=== PATIENT | male | born 1975 | race Caucasian/White ===

== ENCOUNTER 2019-12-06 13:00 | Emergency (ER) | payer BC, OTHER ==
[~2019-12-06] VITALS: Ht 172 cm; Wt 92.0 kg
[2019-12-06] MEDS ORDERED: RT-ALBUTEROL/IPRATROPIUM 3 ML (DUONEB) VIAL INH ONE (13:15)
--- NOTE | 2019-12-06 13:20 | ED General ---
General Chief Complaint: General Problems/Pain Stated Complaint: SOB Source of Information: Patient Exam Limitations: No Limitations History of Present Illness Date Seen by Provider: Dec 06, 2019 Time Seen by Provider: 13:15 Initial Comments Patient presents with complaint of shortness of air onset when going up some steps at work today. Denied any chest pain or shortness of air rest. Denies any recent illness, fever or chills. Denies abdominal pain, nausea or vomiting. Denies any history of heart or lung disease. Allergies and Home Medications Allergies Coded Allergies: cephalexin (Verified Allergy, Unknown, 12/06/19) Home Medications Albuterol Sulfate 1 Puff Puff, 2 PUFF INH Q4H PRN for SHORTNESS OF BREATH 1 PUFF = 90 MCG Prescribed by: JENA DAVIS on 12/06/19 9870 Patient Home Medication List Home Medication List Reviewed: Yes Review of Systems Review of Systems Constitutional: see HPI; No fever, No malaise, No weakness EENTM: no symptoms reported Respiratory: see HPI, dyspnea on exertion; No hemoptysis, No orthopnea, No phlegm; short of breath; No stridor, No wheezing Cardiovascular: see HPI; No chest pain, No edema, No Hx of Intervention, No palpitations, No syncope Gastrointestinal: No abdominal pain, No loss of appetite, No nausea, No vomiting Musculoskeletal: no symptoms reported, see HPI; No joint pain, No muscle pain, No muscle stiffness, No muscle cramps, No muscle weakness, No neck pain Skin: No change in color, No lesions, No rash Past Ojqeflh-Yezbrr-Bbolym Hx Past Med/Social Hx: Reviewed Nursing Past Med/Soc Hx Patient Social History Alcohol Use: Denies Use Recreational Drug Use: No 2nd Hand Smoke Exposure: No Recent Foreign Travel: No Recent Hopitalizations: No Physical Abuse: No Sexual Abuse: No Mistreated: No Fear: No Seasonal Allergies Seasonal Allergies: No Past Medical History Surgeries: No Respiratory: No Cardiac: No Neurological: Yes Neuropathy Genitourinary: No Gastrointestinal: No Musculoskeletal: No Endocrine: Yes Diabetes, Non-Insulin dep HEENT: No Cancer: No Psychosocial: No Integumentary: No Physical Exam Vital Signs Vital Signs - First Documented 12/06/19 13:15 Temp 36.4 Pulse 75 Resp 16 B/P (MAP) 148/92 (110) Pulse Ox 97 O2 Delivery Room Air Capillary Refill : Height, Weight, BMI Height: '" Weight: lbs. oz. kg; BMI Method: General Appearance: No Apparent Distress, WD/WN HEENT: PERRL/EOMI, TMs Normal, Normal ENT Inspection, Pharynx Normal Neck: Full Range of Motion, Normal Inspection, Non Tender, Supple Respiratory: Chest Non Tender, Lungs Clear, Normal Breath Sounds, No Accessory Muscle Use, No Respiratory Distress Cardiovascular: Regular Rate, Rhythm, No Edema, No Gallop, No JVD, No Murmur, Normal Peripheral Pulses Gastrointestinal: Normal Bowel Sounds, Non Tender, Soft Back: Normal Inspection, No CVA Tenderness Extremity: Normal Capillary Refill, Normal Inspection, Non Tender, No Calf Tenderness Neurologic/Psychiatric: Alert, Oriented x3, No Motor/Sensory Deficits Skin: Normal Color, Warm/Dry Progress/Results/Core Measures Suspected Sepsis SIRS Temperature: Pulse: Respiratory Rate: Laboratory Tests 12/06/19 13:30: White Blood Count 5.9 Blood Pressure / Mean: Laboratory Tests 12/06/19 13:30: Creatinine 0.88, Platelet Count 284, Total Bilirubin 0.2 Results/Orders Lab Results Laboratory Tests Test 12/06/19 13:12 12/06/19 13:30 Range/Units Glucometer 140 H 70-110 MG/DL White Blood Count 5.9 4.3-11.0 10^3/uL Red Blood Count 4.86 4.35-5.85 10^6/uL Hemoglobin 14.7 13.3-17.7 G/DL Hematocrit 43 40-54 % Mean Corpuscular Volume 88 80-99 FL Mean Corpuscular Hemoglobin 30 25-34 PG Mean Corpuscular Hemoglobin Concent 34 32-36 G/DL Red Cell Distribution Width 12.6 10.0-14.5 % Platelet Count 284 130-400 10^3/uL Mean Platelet Volume 10.3 7.4-10.4 FL Neutrophils (%) (Auto) 53 42-75 % Lymphocytes (%) (Auto) 36 12-44 % Monocytes (%) (Auto) 8 0-12 % Eosinophils (%) (Auto) 2 0-10 % Basophils (%) (Auto) 1 0-10 % Neutrophils # (Auto) 3.1 1.8-7.8 X 10^3 Lymphocytes # (Auto) 2.2 1.0-4.0 X 10^3 Monocytes # (Auto) 0.5 0.0-1.0 X 10^3 Eosinophils # (Auto) 0.1 0.0-0.3 10^3/uL Basophils # (Auto) 0.0 0.0-0.1 10^3/uL Sodium Level 139 135-145 MMOL/L Potassium Level 4.0 3.6-5.0 MMOL/L Chloride Level 103 98-107 MMOL/L Carbon Dioxide Level 21 21-32 MMOL/L Anion Gap 15 H 5-14 MMOL/L Blood Urea Nitrogen 17 7-18 MG/DL Creatinine 0.88 0.60-1.30 MG/DL Estimat Glomerular Filtration Rate > 60 BUN/Creatinine Ratio 19 Glucose Level 138 H 70-105 MG/DL Calcium Level 9.2 8.5-10.1 MG/DL Corrected Calcium 8.9 8.5-10.1 MG/DL Total Bilirubin 0.2 0.1-1.0 MG/DL Aspartate Amino Transf (AST/SGOT) 29 5-34 U/L Alanine Aminotransferase (ALT/SGPT) 33 0-55 U/L Alkaline Phosphatase 70 40-136 U/L Troponin I < 0.30 <0.30 NG/ML Total Protein 7.5 6.4-8.2 GM/DL Albumin 4.4 3.2-4.5 GM/DL My Orders Orders - ROVENSTINE,JENA L DO Chest 1 View Ap/Pa Only (12/06/19 13:15) Ekg Tracing (12/06/19 13:15) Albuterol/Ipra Inhalation Soln (Duoneb I (12/06/19 13:15) Svn Small Volume Nebulizer (12/06/19 13:15) Cbc With Automated Diff (12/06/19 13:53) Comprehensive Metabolic Panel (12/06/19 13:53) Troponin I Fs (12/06/19 13:53) Medications Given in ED Current Medications Medications Dose Ordered Sig/Milton Route Start Time Stop Time Status Last Admin Dose Admin Albuterol/ Ipratropium 3 ml ONCE ONCE INH 12/06/19 13:15 12/06/19 13:16 DC 12/06/19 13:29 3 ML Vital Signs/I&O 12/06/19 13:15 Temp 36.4 Pulse 75 Resp 16 B/P (MAP) 148/92 (110) Pulse Ox 97 O2 Delivery Room Air Capillary Refill : ECG Initial ECG Impression Date: Dec 06, 2019 Initial ECG Impression Time: 13:30 Initial ECG Rate: 74 Initial ECG Rhythm: Normal Sinus Initial ECG Intervals: Normal Initial ECG Impression: Normal Initial ECG Comparisson: No Previous ECG Available Comment NO ST changes, normal axis Departure Impression Primary Impression: Dyspnea on exertion Disposition: 01 HOME, SELF-CARE Condition: Stable Departure-Patient Inst. Decision time for Depature: 14:23 Referrals: ESTEFANY NEVES MD (PCP/Family) Primary Care Physician Patient Instructions: Shortness of Breath (Dyspnea) Scripts Albuterol Sulfate (PROAIR HFA) 1 Puff Puff 2 PUFF INH Q4H PRN for SHORTNESS OF BREATH, #1 PUFF 1 PUFF = 90 MCG Prov: JENA DAVIS DO 12/06/19 JENA DAVIS DO Dec 06, 2019 13:20
--- NOTE | 2019-12-06 13:54 | Diagnostic Imaging Report ---
Indication: Shortness of breath. Time of exam: 1:41 PM No prior studies are available for comparison. The heart size is normal. The pulmonary vascularity is unremarkable. The lungs are clear. No infiltrate, effusion or pneumothorax is detected. Impression: No acute cardiopulmonary process is detected. Dictated by: Dictated on workstation # [id number]
[2019-12-06 14:02] LABS: HEMATOCRIT 43 % (40-54); HEMOGLOBIN 14.7 G/DL (13.3-17.7); LYMPHOCYTES % (AUTO) 36 % (12-44); MEAN CORPUSCULAR HEMOGLOBIN 30 PG (25-34); MEAN CORPUSCULAR HGB CONC 34 G/DL (32-36); MEAN CORPUSCULAR VOLUME 88 FL (80-99); MEAN PLATELET VOLUME 10.3 FL (7.4-10.4); NEUTROPHILS % (AUTO) 53 % (42-75); PLATELET COUNT 284 10^3/uL (130-400); RED CELL DISTRIBUTION WIDTH 12.6 % (10.0-14.5); WHITE BLOOD COUNT 5.9 10^3/uL (4.3-11.0)
[2019-12-06 14:03] LABS: BASOPHILS % (AUTO) 1 % (0-10); EOSINOPHILS # (AUTO) 0.1 10^3/uL (0.0-0.3); EOSINOPHILS % (AUTO) 2 % (0-10); LYMPHOCYTES # (AUTO) 2.2 X 10^3 (1.0-4.0); MONOCYTES # (AUTO) 0.5 X 10^3 (0.0-1.0); MONOCYTES % (AUTO) 8 % (0-12); NEUTROPHILS # (AUTO) 3.1 X 10^3 (1.8-7.8)
[2019-12-06 14:17] LABS: ALANINE AMINOTRANSFERASE 33 U/L (0-55); ALKALINE PHOSPHATASE 70 U/L (40-136); BILIRUBIN,TOTAL 0.2 MG/DL (0.1-1.0); BUN/CREATININE RATIO 19; CALCIUM 9.2 MG/DL (8.5-10.1); CARBON DIOXIDE 21 MMOL/L (21-32); CHLORIDE 103 MMOL/L (98-107); CREATININE SERUM 0.88 MG/DL (0.60-1.30); GFR ESTIMATED > 60; GLUCOSE 138 MG/DL (70-105); SODIUM 139 MMOL/L (135-145)
[2019-12-06 14:18] LABS: ALBUMIN 4.4 GM/DL (3.2-4.5); TOTAL PROTEIN 7.5 GM/DL (6.4-8.2)
[2019-12-06] MEDS ORDERED: RT-ALBUINH INH (14:24)
[2019-12-06 14:28] VITALS: BP 132/78
== END 2019-12-06 14:29 | disposition home or self-care (01) ==
LOC: ER FS 13:02
DX: R06.09 Other forms of dyspnea (principal); E11.40 Type 2 diabetes mellitus with diabetic neuropathy, unspecified; Z88.1 Allergy status to other antibiotic agents
CPT/HCPCS: 36415; 71045; 80053; 82962; 84484; 85025; 93005

== ENCOUNTER 2020-06-22 14:44 | Emergency (ER) | payer BC ==
[~2020-06-22] VITALS: Ht 172.7 cm; Wt 97.2 kg
[~2020-06-22 14:44] MED LIST: RT-ALBUINH INH
[2020-06-22] MEDS ORDERED: ASPIRIN 81 MG CHEW (CHILDREN'S ASA) PO ONE (15:00)
[2020-06-22 15:18] LABS: HEMATOCRIT 42 % (40-54); HEMOGLOBIN 14.5 G/DL (13.3-17.7); MEAN CORPUSCULAR HEMOGLOBIN 31 PG (25-34); MEAN CORPUSCULAR HGB CONC 35 G/DL (32-36); MEAN CORPUSCULAR VOLUME 88 FL (80-99); PLATELET COUNT 314 10^3/uL (130-400); RED CELL DISTRIBUTION WIDTH 12.5 % (10.0-14.5); WHITE BLOOD COUNT 8.2 10^3/uL (4.3-11.0)
[2020-06-22 15:19] LABS: BASOPHILS # (AUTO) 0.1 10^3/uL (0.0-0.1); BASOPHILS % (AUTO) 1 % (0-10); EOSINOPHILS # (AUTO) 0.2 10^3/uL (0.0-0.3); EOSINOPHILS % (AUTO) 2 % (0-10); LYMPHOCYTES # (AUTO) 2.8 X 10^3 (1.0-4.0); LYMPHOCYTES % (AUTO) 35 % (12-44); MONOCYTES # (AUTO) 0.8 X 10^3 (0.0-1.0); MONOCYTES % (AUTO) 9 % (0-12); NEUTROPHILS # (AUTO) 4.3 X 10^3 (1.8-7.8); NEUTROPHILS % (AUTO) 53 % (42-75)
--- NOTE | 2020-06-22 15:26 | ED Chest Pain ---
General Chief Complaint: Chest Pain Stated Complaint: CHEST/JAW PAIN Source: patient Exam Limitations: no limitations History of Present Illness Date Seen by Provider: Jun 22, 2020 Time Seen by Provider: 14:48 Initial Comments The patient is a pleasant 44-year-old male presents for evaluation of left-sided jaw pain. He states that on he experienced some chest discomfort which has since resolved. He denies any chest pain since then and has not had any t pratibha. He denies any history of cardiac problems. He also denies diaphoresis, nausea or vomiting, palpitations, dizziness or syncope, fevers or chills, cough or shortness of breath. He is alert and oriented 4, calm, and appears to be in no distress this time. The jaw pain he is experiencing is actually at the left TMJ joint. He states that chewing and opening his mouth makes the pain worse. Timing/Duration: 2-3 days Severity/Quality: mild Location: substernal, other (left jaw) Radiation: jaw Prior CP/Workup: no prior chest pain Modifying Factors: worse with breathing, worse with coughing, worse with exercise, worse with lying down, worse with movement ASA po GLASS SETTER: No NTG SL GLASS SETTER: No Associated Symptoms: No denies symptoms Allergies and Home Medications Allergies Coded Allergies: cephalexin (Verified Allergy, Unknown, 12/06/19) Home Medications Albuterol Sulfate 1 Puff Puff, 2 PUFF INH Q4H PRN for SHORTNESS OF BREATH 1 PUFF = 90 MCG Prescribed by: JENA DAVIS on 12/06/19 1424 Patient Home Medication List Home Medication List Reviewed: Yes Review of Systems Review of Systems Constitutional: no symptoms reported EENTM: Other (left jaw pain) Respiratory: No Symptoms Reported Cardiovascular: Chest Pain Gastrointestinal: No Symptoms Reported Genitourinary: No Symptoms Reported Musculoskeletal: no symptoms reported Skin: no symptoms reported Psychiatric/Neurological: No Symptoms Reported Endocrine: No Symptoms Reported Hematologic/Lymphatic: No Symptoms Reported All Other Systems Reviewed Negative Unless Noted: Yes Past Juxskel-Lotlno-Vqmenl Hx Past Med/Social Hx: Reviewed Nursing Past Med/Soc Hx Patient Social History 2nd Hand Smoke Exposure: No Recent Hopitalizations: No Seasonal Allergies Seasonal Allergies: No Past Medical History Surgeries: No Respiratory: No Cardiac: No Neurological: Yes Neuropathy Genitourinary: No Gastrointestinal: No Musculoskeletal: No Endocrine: Yes Diabetes, Non-Insulin dep HEENT: No Cancer: No Psychosocial: No Integumentary: No Physical Exam Vital Signs Vital Signs - First Documented 06/22/20 14:45 Temp 37.0 Pulse 75 Resp 21 B/P (MAP) 155/100 (118) Pulse Ox 97 O2 Delivery Room Air Capillary Refill : Height, Weight, BMI Height: '" Weight: lbs. oz. kg; 31.00 BMI Method: General Appearance: No Apparent Distress, WD/WN HEENT: PERRL/EOMI, Pharynx Normal Neck: Full Range of Motion, Normal Inspection, Non Tender Respiratory: Lungs Clear, Normal Breath Sounds, No Accessory Muscle Use Cardiovascular: Regular Rate, Rhythm, No Edema, No Murmur, Normal Peripheral Pulses Gastrointestinal: Normal Bowel Sounds, No Pulsatile Mass, Non Tender, Soft Extremity: Normal Capillary Refill, Normal Range of Motion, Non Tender Neurologic/Psychiatric: Alert, Oriented x3, No Motor/Sensory Deficits, Normal Mood/Affect Skin: Normal Color, Warm/Dry Progress/Results/Core Measures Results/Orders Lab Results Laboratory Tests Test 06/22/20 14:51 Range/Units White Blood Count 8.2 4.3-11.0 10^3/uL Red Blood Count 4.74 4.35-5.85 10^6/uL Hemoglobin 14.5 13.3-17.7 G/DL Hematocrit 42 40-54 % Mean Corpuscular Volume 88 80-99 FL Mean Corpuscular Hemoglobin 31 25-34 PG Mean Corpuscular Hemoglobin Concent 35 32-36 G/DL Red Cell Distribution Width 12.5 10.0-14.5 % Platelet Count 314 130-400 10^3/uL Mean Platelet Volume 10.0 7.4-10.4 FL Neutrophils (%) (Auto) 53 42-75 % Lymphocytes (%) (Auto) 35 12-44 % Monocytes (%) (Auto) 9 0-12 % Eosinophils (%) (Auto) 2 0-10 % Basophils (%) (Auto) 1 0-10 % Neutrophils # (Auto) 4.3 1.8-7.8 X 10^3 Lymphocytes # (Auto) 2.8 1.0-4.0 X 10^3 Monocytes # (Auto) 0.8 0.0-1.0 X 10^3 Eosinophils # (Auto) 0.2 0.0-0.3 10^3/uL Basophils # (Auto) 0.1 0.0-0.1 10^3/uL Sodium Level 138 135-145 MMOL/L Potassium Level 4.1 3.6-5.0 MMOL/L Chloride Level 103 98-107 MMOL/L Carbon Dioxide Level 23 21-32 MMOL/L Anion Gap 12 5-14 MMOL/L Blood Urea Nitrogen 16 7-18 MG/DL Creatinine 0.85 0.60-1.30 MG/DL Estimat Glomerular Filtration Rate > 60 BUN/Creatinine Ratio 19 Glucose Level 125 H 70-105 MG/DL Calcium Level 9.7 8.5-10.1 MG/DL Corrected Calcium 9.3 8.5-10.1 MG/DL Magnesium Level 2.1 1.6-2.4 MG/DL Total Bilirubin 0.3 0.1-1.0 MG/DL Aspartate Amino Transf (AST/SGOT) 34 5-34 U/L Alanine Aminotransferase (ALT/SGPT) 60 H 0-55 U/L Alkaline Phosphatase 76 40-136 U/L Troponin I < 0.30 <0.30 NG/ML Pro-B-Type Natriuretic Peptide 7.6 <75.0 PG/ML Total Protein 7.4 6.4-8.2 GM/DL Albumin 4.5 3.2-4.5 GM/DL Lipase 53 8-78 U/L My Orders Orders - LAURA KING DO Cbc With Automated Diff (06/22/20 14:55) Magnesium (06/22/20 14:55) Chest 1 View Ap/Pa Only (06/22/20 14:55) Ekg Tracing (06/22/20 14:55) Comprehensive Metabolic Panel (06/22/20 14:55) O2 (06/22/20 14:55) Monitor-Rhythm Ecg Trace Only (06/22/20 14:55) Aspirin Chewable Tablet (Baby Aspirin Ch (06/22/20 15:00) Ed Iv/Invasive Line Start (06/22/20 14:55) Lipase (06/22/20 14:55) Troponin I Fs (06/22/20 14:55) Probnp Fs (06/22/20 14:55) Lidocaine 2% Viscous 15 Ml (Xylocaine Vi (06/22/20 16:15) Antacid Suspension (Mylanta Suspension (06/22/20 16:15) Medications Given in ED Current Medications Medications Dose Ordered Sig/Milton Route Start Time Stop Time Status Last Admin Dose Admin Al Hydrox/Mg Hydrox/Simethicone 30 ml ONCE ONCE PO 06/22/20 16:15 06/22/20 16:16 DC 06/22/20 16:16 30 ML Aspirin 324 mg ONCE ONCE PO 06/22/20 15:00 06/22/20 15:01 DC 06/22/20 15:16 324 MG Lidocaine HCl 15 ml ONCE ONCE PO 06/22/20 16:15 06/22/20 16:16 DC 06/22/20 16:17 15 ML Vital Signs/I&O 06/22/20 06/22/20 14:45 14:45 Temp 37.0 Pulse 75 Resp 21 B/P (MAP) 155/100 (118) Pulse Ox 97 O2 Delivery Room Air Room Air Progress Progress Note : Progress Note @1635 - patient updated on lab and imaging results which are acutely unremarkable. He states he is having a small amount of heartburn so GI cocktail has been given but he denies any chest pain. He says that at rest his jaw pain is mild but when he talks or opens his mouth or chews it gets worse. Advised the patient that it does not appear that his symptoms are coming from his heart but advised an outpatient stress test with his PCP. Advise that he follow-up with his PCP in the next 1-2 days and return to the emergency Department immediately for new or worsening symptoms. The patient expresses verbal understanding and agreement with the plan. Comment EKG@ 1448 - normal sinus rhythm, rate of 69, normal axis, no acute ischemic findings noted, no STEMI, reviewed and interpreted by myself Departure Impression Primary Impression: Sprain of jaw, left side, initial encounter Additional Impression: Chest pain Disposition: HOME, SELF-CARE Condition: Stable Departure-Patient Inst. Decision time for Depature: 16:34 Referrals: SELF,ESTEFANY RIDER (PCP/Family) Primary Care Physician Patient Instructions: Chest Pain That Is Not Caused by the Heart (DC), Temporomandibular Joint (TMJ) Disorders (DC) Add. Discharge Instructions: Follow-up with your doctor in the next 1-2 days. As we discussed, I recommend that you obtain an outpatient stress test in the next few days. Return to the emergency Department immediately for new or worsening symptoms. Take the prescribed medicine as directed, as needed for your left eye pain. LAURA KING DO Jun 22, 2020 15:26
[2020-06-22 15:40] LABS: BUN/CREATININE RATIO 19; CARBON DIOXIDE 23 MMOL/L (21-32); CHLORIDE 103 MMOL/L (98-107); CREATININE SERUM 0.85 MG/DL (0.60-1.30); GFR ESTIMATED > 60; GLUCOSE 125 MG/DL (70-105); POTASSIUM 4.1 MMOL/L (3.6-5.0); SODIUM 138 MMOL/L (135-145)
[2020-06-22 15:41] LABS: ALANINE AMINOTRANSFERASE 60 U/L (0-55); ALBUMIN 4.5 GM/DL (3.2-4.5); ALKALINE PHOSPHATASE 76 U/L (40-136); BILIRUBIN,TOTAL 0.3 MG/DL (0.1-1.0); CALCIUM 9.7 MG/DL (8.5-10.1); LIPASE 53 U/L (8-78); MAGNESIUM 2.1 MG/DL (1.6-2.4); TOTAL PROTEIN 7.4 GM/DL (6.4-8.2)
[2020-06-22] MEDS ORDERED: LIDOCAINE 2% VISCOUS 15 ML UDC PO ONE (16:15)
[2020-06-22] MEDS ORDERED: ANTACID SUSP 30 ML UDC (MYLANTA) PO ONE (16:15)
[2020-06-22 16:50] VITALS: BP 141/88
--- NOTE | 2020-06-22 16:52 | Diagnostic Imaging Report ---
INDICATION: Chest pain. COMPARISON: 12/06/2019. FINDINGS: Single frontal view of the chest demonstrates normal heart size and pulmonary vascularity. The lungs are well aerated and clear. No large pleural effusion or pneumothorax is seen. The visualized osseous structures show no acute abnormalities. IMPRESSION: 1. No acute cardiopulmonary process. Dictated by: Dictated on workstation # [id number]
--- OUTSIDE RECORDS SUMMARY | 2020-06-22 19:19 | XMS REPORT ---
Author Author Chandan ROSAS Organization [facility] Address [address] [place] [address] Care Team Providers Care Solar Sales Representative And Assessor Name Role Phone COREY ROSAS Unavailable PROBLEMS Type Condition ICD9-CM Code [id number] Code Onset Dates Condition S tatus SNOMED Code Problem Environmental allergies Z91.09 23 Nov, 2008 Act caitlin [id number] Problem ADHD (attention deficit hyperactivity disorder) F9 0.9 Active 560488224 Problem Major depressive disorder, recurrent, moderate F33 .1 Active 336345136 Problem GERD (gastroesophageal reflux disease) K21.9 2 3 Nov, 2008 Active 216977171 Problem Chronic neck pain M54.2 Jun, Active [id number] Problem CTS (carpal tunnel syndrome) G56.00 08 Nov, 201 4 Active 54032260 Problem IBS (irritable bowel syndrome) K58.9 Active [id number] ALLERGIES No Information ENCOUNTERS Encounter Location Date Diagnosis [address] [place] [address] Nov, [address] [place] [address] Nov, [address] [place] [address] Nov, [address] [place] [address] Oct, Depression F32.9 [address] [place] [address] Oct, ADHD (attention deficit hype ractivity disorder) F90.9 [address] [place] [address] Oct, Encounter for immunization Z [address] [place] [address] Sep, ADHD (attention deficit hype ractivity disorder) F90.9 [address] [place] [address] Sep, [address] [place] [address] Sep, Sinusitis acute J01.90 [address] [place] [address] Sep, Major depressive disorder, r ecurrent, moderate F33.1 ; Traumatic brain injury, without loss of consciousness, sequela S06.9X0S ; Other chcf (current) drug therapy Z79.899 and ADHD (attention deficit hyperactivity disorder) F90.[address] [place] [address] Aug, ADHD (attention deficit hype ractivity disorder) F90.9 [address] [place] [address] Aug, [address] [place] [address] Aug, [address] [place] [address] Aug, ADHD (attention deficit hype ractivity disorder) F90.9 and Viral illness B34.[address] [place] [address] Jul, ADHD (attention deficit hype ractivity disorder) F90.9 [facility] [address] [id number] [place] [address] Jul, [facility] [address] [id number] [place] [address] Jul, [address] [place] [address] Jun, ADHD (attention deficit hype ractivity disorder) F90.9 [facility] [address] [place] [address] Jun, ADHD (attention deficit hype ractivity disorder) F90.9 [facility] [address] [place] [address] Apr, Depression F32.9 ; Medicatio n monitoring encounter Z51.81 and ADHD (attention deficit hyperactivity disorder) F90.9 [facility] [address] [place] [address] Apr, [facility] [address] [place] [address] March, [facility] [address] [place] [address] March, ADHD (attention deficit hype ractivity disorder) F90.9 ; GERD (gastroesophageal reflux disease) K21.9 and Depression F32.9 [facility] [address] [place] [address] March, [facility] [address] [place] [address] Feb, Attention deficit hyperactiv ity disorder (ADHD) F90.9 and Acute non-recurrent maxillary sinusitis J01.00 [facility] [address] [place] [address] Feb, [facility] [address] [place] [address] Jan, [facility] [address] [place] [address] Jan, [facility] [address] [place] [address] Jan, [facility] [address] [place] [address] Jan, [facility] [address] [place] [address] Jan, [facility] [address] [facility] [place] [address] Jan, Numbness in both hands R20.0 [facility] [address] [facility] [place] [address] Jan, [facility] [address] [id number] [place] [address] Oct, [facility] [id number] [place] [address] Oct, [facility] [address] [id number] [place] [address] Aug, [facility] [address] [id number] [place] [address] Jul, IMMUNIZATIONS No Known Immunizations SOCIAL HISTORY Never Assessed REASON FOR VISIT Short Term Disability PLAN OF CARE VITAL SIGNS MEDICATIONS Unknown Medications RESULTS No Results PROCEDURES No Known procedures INSTRUCTIONS MEDICATIONS ADMINISTERED No Known Medications MEDICAL (GENERAL) HISTORY Type Description Date Medical History GERD (gastroesophageal reflux disease) Medical History IBS (irritable bowel syndrome) Medical History ADHD (attention deficit hyperactivity di sorder) Medical History Depression Medical History Environmental allergies Medical History CTS (carpal tunnel syndrome) Medical History Chronic neck pain Surgical History ankle surgery right Hospitalization History head injury
--- OUTSIDE RECORDS SUMMARY | 2020-06-22 19:19 | XMS REPORT ---
Author Author Chandan ROSAS Organization [facility] Address [address] [place] [address] Care Team Providers Care Agency Manager Name Role Phone COREY ROSAS Unavailable PROBLEMS Type Condition ICD9-CM Code [id number] Code Onset Dates Condition S tatus SNOMED Code Problem Environmental allergies Z91.09 Nov, Act caitlin [id number] Problem GERD (gastroesophageal reflux disease) K21.9 2 3 Nov, 2008 Active 923635432 Problem Major depressive disorder, recurrent, moderate F33 .1 Active 940149740 Problem Unspecified mood [affective] disorder F39 Active 98748490 Problem Chronic neck pain M54.2 Jun, Active 7911354212746 Problem CTS (carpal tunnel syndrome) G56.00 Nov, 4 Active 74579170 Problem IBS (irritable bowel syndrome) K58.9 Active 28938790 Problem ADHD (attention deficit hyperactivity disorder) F9 0.9 Active 787946644 ALLERGIES No Information ENCOUNTERS Encounter Location Date Diagnosis [address] 340 [place], [place] [address] Jun, [address] [place], [place] [address] Apr, 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 Z79.[address] 340B [id number], [place] [address] 24 Apr, 2020 ADHD (attention deficit hype ractivity disorder) F90.9 ; Other chcf (current) drug therapy Z79.899 ; Unspecified mood [affective] disorder F39 and Traumatic brain injury, without loss of consciousness, sequela S06.9X0S [address] 340B [id number], [place] [address] Apr, Paronychia L03.019 [facility] ARTURO SMITH [address] 340B [id number] [place] [address] Apr, ADHD (attention deficit hype ractivity disorder) F90.9 [facility] ARTURO [address] 340B [id number] [place] [address] March, ADHD (attention deficit hype ractivity disorder) F90.9 [facility] ARTURO [address] 340B [id number], [place] [address] March, Major depressive disorder, r ecurrent, moderate F33.1 ; Traumatic brain injury, without loss of consciousness, sequela S06.9X0S ; 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.899 and ADHD (attention deficit hyperactivity disorder) F90.9 [facility] [address] [facility] [id number] [address] [place] [address] Feb, Major depressive disorder, r ecurrent, moderate F33.1 [facility] ARTURO [address] 340B [id number], [place] [address] Feb, ADHD (attention deficit hype ractivity disorder) F90.9 [facility] ARTURO [address] 340B [id number], [place] [address] Feb, [address] 340[address] [id number], [place] [address] Feb, [address] 340[address] [id number], [place] [address] Jan, ADHD (attention deficit hype ractivity disorder) F90.9 and IBS (irritable bowel syndrome) K58.9 [facility] [address] [facility] [id number] [address] [place] [address] Jan, ADHD (attention deficit hype ractivity disorder) F90.9 [facility] ARTURO [address] 340B [id number] [place] [address] Dec, [address] 340[address] [id number], [place] [address] Dec, Major depressive disorder, r ecurrent, moderate F33.1 ; Traumatic brain injury, without loss of consciousness, sequela S06.9X0S ; Other chcf (current) drug therapy Z79.899 and ADHD (attention deficit hyperactivity disorder) F90.[address] 340B [id number] [place] [address] Nov, Major depressive disorder, r ecurrent, moderate F33.1 ; Traumatic brain injury, without loss of consciousness, sequela S06.9X0S ; Other chcf (current) drug therapy Z79.899 and ADHD (attention deficit hyperactivity disorder) F90.[address] 340B [id number] [place] [address] Nov, [address] 340B [id number] [place] [address] Nov, [address] 340[address] [id number], [place] [address] Oct, Depression F32.[address] 340B [id number] [place] [address] Oct, ADHD (attention deficit hype ractivity disorder) F90.[address] 340B [id number] [place] [address] Oct, Encounter for immunization Z [address] 340B [id number] [place] [address] Sep, ADHD (attention deficit hype ractivity disorder) F90.[address] 340B [id number] [place] [address] Sep, [address] 340B [id number] [place] [address] 14 Sep, 2019 Sinusitis acute J01.[address] 340B [id number] [place] [address] Sep, Major depressive disorder, r ecurrent, moderate F33.1 ; Traumatic brain injury, without loss of consciousness, sequela S06.9X0S ; Other chcf (current) drug therapy Z79.899 and ADHD (attention deficit hyperactivity disorder) F90.9 [facility] ARTURO [address] 340B [id number] [place] [address] Aug, ADHD (attention deficit hype ractivity disorder) F90.9 [facility] ARTURO [address] 340B [id number] [place] [address] Aug, [address] 340B [id number] [place] [address] Aug, [address] 340[address] [id number], [place] [address] Aug, ADHD (attention deficit hype ractivity disorder) F90.9 and Viral illness B34.9 [facility] ARTURO [address] 340B [id number] [place] [address] Jul, ADHD (attention deficit hype ractivity disorder) F90.9 [facility] [address] [facility] [id number] [address] [place] [address] Jul, [facility] [address] [facility] [id number] [address] [place] [address] Jul, [address] 340B [id number] [place] [address] Jun, ADHD (attention deficit hype ractivity disorder) F90.[address] 340B [id number] [place] [address] Jun, ADHD (attention deficit hype ractivity disorder) F90.[address] 340B [id number] [place] [address] Apr, Depression F32.9 ; Medicatio n monitoring encounter Z51.81 and ADHD (attention deficit hyperactivity disorder) F90.[address] 340B [id number] [place] [address] Apr, [facility] [address] 340B [id number] [place] [address] March, [facility] [address]B [id number] [place] [address] March, ADHD (attention deficit hype ractivity disorder) F90.9 ; GERD (gastroesophageal reflux disease) K21.9 and Depression F32.9 [facility] [address] 340B [id number] [place] [address] March, [facility] [address] 340[address] [id number], [place] [address] Feb, Attention deficit hyperactiv ity disorder (ADHD) F90.9 and Acute non-recurrent maxillary sinusitis J01.00 [facility] [address] 340B [id number] [place] [address] Feb, [facility] [address] 340[address] [id number], [place] [address] Jan, [facility] [address] 340[address] [id number], [place] [address] Jan, [facility] [address] 340[address] [id number], [place] [address] Jan, [facility] [address] 340[address] [id number], [place] [address] Jan, [facility] [address] 340[address] [id number], [place] [address] Jan, [facility] [address] 340B [id number], [place] [address] Jan, Numbness in both hands R20.0 [facility] [address]B [id number] [place] [address] Jan, [facility] [address] [facility] [id number] [place] [address] Oct, [facility] [address] [facility] [id number] [address] [place] [address] Oct, [facility] [address] [facility] [id number] [address] [place] [address] Aug, [facility] [address] [facility] [id number] [address] [place] [address] Jul, IMMUNIZATIONS No Known Immunizations SOCIAL HISTORY Never Assessed REASON FOR VISIT Controlled Med Refill 02/20 PLAN OF CARE VITAL SIGNS MEDICATIONS Medication Instructions Dosage Frequency Start Date End Date Duration S tatus Vyvanse 40 MG Orally Once a day 1 capsule in the morning 24h Feb, 28 days Active RESULTS No Results PROCEDURES No Known procedures INSTRUCTIONS MEDICATIONS ADMINISTERED No Known Medications MEDICAL (GENERAL) HISTORY Type Description Date Medical History GERD (gastroesophageal reflux disease) Medical History IBS (irritable bowel syndrome) Medical History ADHD (attention deficit hyperactivity di sorder) Medical History Depression Medical History Environmental allergies Medical History CTS (carpal tunnel syndrome) Medical History Chronic neck pain Surgical History ankle surgery right Surgical History vasectomy Surgical History colonoscopy Surgical History left hand surgery, bb removed Hospitalization History head injury Hospitalization History via [facility] shortness of breath 12/06/2019
--- OUTSIDE RECORDS SUMMARY | 2020-06-22 19:19 | XMS REPORT ---
Author Author Chandan ROSAS Organization [facility] Address [address] [place] [address] Care Team Providers Care Automatic Coil Machine Operator Name Role Phone COREY ROSAS Unavailable PROBLEMS Type Condition ICD9-CM Code [id number] Code Onset Dates Condition S tatus SNOMED Code Problem Chronic neck pain M54.2 Jun, Active [id number] Problem IBS (irritable bowel syndrome) K58.9 Active 15434911 Problem ADHD (attention deficit hyperactivity disorder) F9 0.9 Active 300189841 Problem CTS (carpal tunnel syndrome) G56.00 Nov, 4 Active 95244753 Problem GERD (gastroesophageal reflux disease) K21.9 2 Nov, Active 141260216 Problem Environmental allergies Z91.09 Nov, Act caitlin 068481752 Problem Depression F32.9 Active 61358079 ALLERGIES No Information ENCOUNTERS Encounter Location Date Diagnosis [address] [address] May, [address] [address] Apr, Depression F32.9 ; Medication monitoring encounter Z51.81 and ADHD (attention deficit hyperactivity disorder) F90.[address] [address] Apr, [address] [address] March, [address] [address] March, ADHD (attention deficit hyperactivity di sorder) F90.9 ; GERD (gastroesophageal reflux disease) K21.9 and Depression F32.[address] [address] March, [address] [place] [address] Feb, Attention deficit hyperactivity disorder (ADHD) F90.9 and Acute non- recurrent maxillary sinusitis J01.00 [facility] [address] [place] [address] Feb, [facility] [address] [address] Jan, [facility] [address] [place] [address] Jan, [facility] [address] [place] [address] Jan, [facility] [address] [place] [address] Jan, [facility] [address] [place] [address] Jan, [facility] [address] [place] [address] Jan, Numbness in both hands R20.0 [facility] [address] [place] [address] Jan, [facility] [address] [facility] [id number] [address] [place] [address] Oct, [facility] [address] [facility] [id number] [address] [place] [address] Oct, [facility] [address] [facility] [id number] [address] [place] [address] Aug, [facility] [address] [facility] [id number] [address] [place] [address] Jul, IMMUNIZATIONS No Known Immunizations SOCIAL HISTORY [...]
--- OUTSIDE RECORDS SUMMARY | 2020-06-22 19:19 | XMS REPORT ---
Author Author Chandan ROSAS Organization [facility] Address [address] [place] [address] Care Team Providers Care Roustabout Crew Name Role Phone COREY ROSAS Unavailable PROBLEMS Type Condition ICD9-CM Code [id number] Code Onset Dates Condition S tatus SNOMED Code Problem Chronic neck pain M54.2 Jun, Active 6109563949108 Problem IBS (irritable bowel syndrome) K58.9 Active 92571032 Problem ADHD (attention deficit hyperactivity disorder) F9 0.9 Active 860623808 Problem CTS (carpal tunnel syndrome) G56.00 Nov, 4 Active 08995881 Problem GERD (gastroesophageal reflux disease) K21.9 2 Nov, Active 024437863 Problem Environmental allergies Z91.09 Nov, Act caitlin 032429037 Problem Depression F32.9 Active 91766886 ALLERGIES No Information ENCOUNTERS Encounter Location Date Diagnosis [address] [address] Apr, Depression F32.9 ; Medication monitoring encounter Z51.81 and ADHD (attention deficit hyperactivity disorder) F90.[address] [address] Apr, [address] [address] March, [address] [address] March, ADHD (attention deficit hyperactivity di sorder) F90.9 ; GERD (gastroesophageal reflux disease) K21.9 and Depression F32.[address] [address] March, [address] [address] Feb, Attention deficit hyperactivity disorder (ADHD) F90.9 and Acute non- recurrent maxillary sinusitis J01.00 [facility] [address] [place] [address] Feb, [facility] [address] [place] [address] Jan, [facility] [address] [place] [address] Jan, [facility] [address] [place] [address] Jan, [facility] [address] [place] [address] Jan, [facility] [address] [place] [address] Jan, [facility] [address] [place] [address] Jan, Numbness in both hands R20.0 [facility] [address] [place] [address] Jan, [facility] [address] [facility] [id number] [address] [place] [address] Oct, [facility] [address] [facility] [id number] [address] [place] [address] Oct, [facility] [address] [facility] [id number] [address] [place] [address] Aug, [facility] [address] [facility] [id number] [address] [place] [address] Jul, IMMUNIZATIONS No Known Immunizations SOCIAL HISTORY Never Assessed REASON FOR VISIT Neurologist referral PLAN OF CARE VITAL SIGNS MEDICATIONS Unknown [...]
--- OUTSIDE RECORDS SUMMARY | 2020-06-22 19:19 | XMS REPORT ---
Author Author Chandan ROSAS Organization [facility] Address [address] [place] [address] Care Team Providers Care Punch Hand Name Role Phone COREY ROSAS Unavailable PROBLEMS Type Condition ICD9-CM Code SCA90-GZ Code Onset Dates Condition S tatus SNOMED Code Problem Chronic neck pain M54.2 Jun, Active 5224171935922 Problem IBS (irritable bowel syndrome) K58.9 Active 18359616 Problem ADHD (attention deficit hyperactivity disorder) F9 0.9 Active 124582208 Problem CTS (carpal tunnel syndrome) G56.00 Nov, 4 Active 30069590 Problem GERD (gastroesophageal reflux disease) K21.9 2 Nov, Active 716677763 Problem Environmental allergies Z91.09 Nov, Act caitlin 606425084 Problem Depression F32.9 Active 81082688 ALLERGIES Substance Reaction Event Type Date Status Keflex rash Drug Allergy Jan, Active ENCOUNTERS Encounter Location Date Diagnosis [address] [address] May, [address] [address] Apr, Depression F32.9 ; Medication monitoring encounter Z51.81 and ADHD (attention deficit hyperactivity disorder) F90.[address] [address] Apr, [address] [address] March, [address] [address] March, ADHD (attention deficit hyperactivity di sorder) F90.9 ; GERD (gastroesophageal reflux disease) K21.9 and Depression F32.[address] [address] March, [facility] [address] [address] Feb, Attention deficit hyperactivity disorder (ADHD) F90.9 and Acute non- recurrent maxillary sinusitis J01.00 [facility] [address] [address] Feb, [facility] [address] [address] Jan, [facility] [address] [address] Jan, [facility] [address] [place] [address] Jan, [facility] [address] [address] Jan, [facility] [address] [address] Jan, [facility] [address] [address] Jan, Numbness in both hands R20.0 [facility] [address] [address] Jan, [facility] [address] [place] [id number] [address] [place] [address] Oct, [facility] [address] [place] [id number] [address] [place] [address] Oct, [facility] [address] [facility] [id number] [address] [place] [address] Aug, [facility] [address] [place] [id number] [address] [place] [address] Jul, IMMUNIZATIONS No Known Immunizations SOCIAL HISTORY Never Assessed REASON FOR VISIT needs to discuss nerve damagew-travis,RMA, pt states that both of his arms are hurting from his elbows and to the tip of his fingers. states that the pain is g etting worse PLAN OF CARE Activity Details Follow Up prn Reason: VITAL SIGNS Height 66 in 2019-01-24 Weight 204 lbs 2019-01-24 Temperature 98.2 degrees Fahrenheit 2019-01-24 Heart Rate 82 bpm 2019-01-24 Respiratory Rate 18 2019-01-24 Oximetry on room air:98 % 2019-01-24 BMI 32.92 kg/m2 2019-01-24 Blood pressure systolic 140 mmHg 2019-01-24 Blood pressure diastolic 80 mmHg 2019-01-24 MEDICATIONS Medication Instructions Dosage Frequency Start Date End Date Duration S tatus Vyvanse 40 MG Orally Once a day 1 capsule in the morning 24h Jan, 28 days Active Claritin 10 MG Orally Once a day 1 capsule 24h 30 da y(s) Active Zofran 4 MG as directed Active Viberzi 75 MG Orally Twice a day 1 tablet with food 12h Active Neurontin 300 MG Orally Once a day 1 capsule 24h 30 day(s) Active Celexa 40 MG Orally Once a day 0.5 tablet 24h 30 day (s) Active Cyclobenzaprine HCl 10 MG Orally Three times a day 1 tablet as needed 8h Active Zyloprim 300 MG Orally Once a day 1 tablet 24h 30 da y(s) Active Prilosec OTC 20 MG Orally Once a day 1 tablet 24h 30 day(s) Active Ibuprofen 800 MG Orally Three times a day 1 tablet with food or milk as needed 8h Active RESULTS No Results PROCEDURES No Known [...]
--- OUTSIDE RECORDS SUMMARY | 2020-06-22 19:19 | XMS REPORT ---
Author Author Chandan ROSAS Organization [facility] Address [address] [place] [address] Care Team Providers Care Gambreler Helper Name Role Phone COREY ROSAS Unavailable PROBLEMS Unknown Problems ALLERGIES No Information ENCOUNTERS Encounter Location Date Diagnosis [address] [address] Jan, [address] [address] Jan, [address] [address] Jan, Numbness in both hands R20.[address] [address] Jan, IMMUNIZATIONS No Known Immunizations SOCIAL HISTORY Never Assessed REASON FOR VISIT Medication refill request PLAN OF CARE VITAL SIGNS MEDICATIONS Medication Instructions Dosage Frequency Start Date End Date Duration S tatus Vyvanse 40 MG Orally Once a day 1 capsule in the morning 24h Jan, 28 days Active RESULTS No Results PROCEDURES No Known procedures INSTRUCTIONS MEDICATIONS ADMINISTERED No Known Medications MEDICAL (GENERAL) HISTORY Type Description Date Medical History GERD (gastroesophageal reflux disease) Medical History IBS (irritable bowel syndrome) Medical History ADHD (attention deficit hyperactivity di sorder) Medical History Depression
--- OUTSIDE RECORDS SUMMARY | 2020-06-22 19:19 | XMS REPORT ---
Author Author Chandan ROSAS Organization [facility] Address [address] [place] [address] Care Team Providers Care Heel Curver Name Role Phone COREY ROSAS Unavailable PROBLEMS Type Condition ICD9-CM Code NKT44-LT Code Onset Dates Condition S tatus SNOMED Code Problem Environmental allergies Z91.09 23 Nov, 2008 Act caitlin [id number] Problem ADHD (attention deficit hyperactivity disorder) F9 0.9 Active 391560465 Problem Major depressive disorder, recurrent, moderate F33 .1 Active 310055375 Problem GERD (gastroesophageal reflux disease) K21.9 2 3 Nov, 2008 Active 823178017 Problem Chronic neck pain M54.2 Jun, Active 8941149714888 Problem CTS (carpal tunnel syndrome) G56.00 08 Nov, 201 4 Active 78877864 Problem IBS (irritable bowel syndrome) K58.9 Active 13877038 ALLERGIES No Information ENCOUNTERS Encounter Location Date Diagnosis [address] [place] [address] Nov, [address] [place] [address] Nov, [address] [place] [address] Nov, [address] [place] [address] Oct, Depression F32.9 [address] [place] [address] Oct, ADHD (attention deficit hype ractivity disorder) F90.9 [address] [place] [address] Oct, Encounter for immunization Z [address] [place] [address] Sep, ADHD (attention deficit hype ractivity disorder) F90.9 [address] [place] [address] Sep, [address] [place] [address] Sep, Sinusitis acute J01.90 [address] [place] [address] Sep, Major depressive disorder, r ecurrent, moderate F33.1 ; Traumatic brain injury, without loss of consciousness, sequela S06.9X0S ; Other penitentiary (current) drug therapy Z79.899 and ADHD (attention deficit hyperactivity disorder) F90.9 [address] [place] [address] Aug, ADHD (attention deficit hype ractivity disorder) F90.9 [address] [place] [address] Aug, [address] [place] [address] Aug, [address] [place] [address] Aug, ADHD (attention deficit hype ractivity disorder) F90.9 and Viral illness B34.[address] [place] [address] Jul, ADHD (attention deficit hype ractivity disorder) F90.9 [facility] [place] [address] [id number] [place] [address] Jul, [facility] [place] [address] [id number] [place] [address] Jul, [address] [place] [address] Jun, ADHD (attention deficit hype ractivity disorder) F90.9 [facility] [address] [place] [address] Jun, ADHD (attention deficit hype ractivity disorder) F90.9 [facility] [address] [place] [address] Apr, Depression F32.9 ; Medicatio n monitoring encounter Z51.81 and ADHD (attention deficit hyperactivity disorder) F90.9 [facility] [address] [place] [address] Apr, [facility] [address] [place] [address] March, [facility] [address] [place] [address] March, ADHD (attention deficit hype ractivity disorder) F90.9 ; GERD (gastroesophageal reflux disease) K21.9 and Depression F32.9 [facility] [address] [place] [address] March, [facility] [address] [place] [address] Feb, Attention deficit hyperactiv ity disorder (ADHD) F90.9 and Acute non-recurrent maxillary sinusitis J01.00 [facility] [address] [place] [address] Feb, [facility] [address] [place] [address] Jan, [facility] [address] [place] [address] Jan, [facility] [address] [place] [address] Jan, [facility] [address] [place] [address] Jan, [facility] [address] [place] [address] Jan, [facility] [address] [facility] [place] [address] Jan, Numbness in both hands R20.0 [facility] [address] [facility] [place] [address] Jan, [facility] [place] [address] [id number] [place] [address] Oct, [facility] [place] [id number] [place] [address] Oct, [facility] [place] [address] [id number] [place] [address] Aug, [facility] [place] [address] [id number] [place] [address] Jul, IMMUNIZATIONS No Known Immunizations SOCIAL HISTORY Never Assessed REASON FOR VISIT controlled PLAN OF CARE VITAL SIGNS MEDICATIONS Medication Instructions Dosage Frequency Start Date End Date Duration S tatus Viberzi 75 MG Orally Twice a day 1 tablet with food 12h 30 days Active RESULTS No Results PROCEDURES No [...]
--- OUTSIDE RECORDS SUMMARY | 2020-06-22 19:19 | XMS REPORT ---
Author Author Chandan ROSAS Organization [facility] Address [address] [place] [address] Care Team Providers Care Advertising Material Distributor Name Role Phone COREY ROSAS Unavailable PROBLEMS Type Condition ICD9-CM Code SQT42-FG Code Onset Dates Condition S tatus SNOMED Code Problem Environmental allergies Z91.09 23 Nov, 2008 Act caitlin [id number] Problem ADHD (attention deficit hyperactivity disorder) F9 0.9 Active 515306028 Problem Major depressive disorder, recurrent, moderate F33 .1 Active 554884215 Problem GERD (gastroesophageal reflux disease) K21.9 2 3 Nov, 2008 Active 599812244 Problem Chronic neck pain M54.2 Jun, Active 1566741617344 Problem CTS (carpal tunnel syndrome) G56.00 08 Nov, 201 4 Active 04582146 Problem IBS (irritable bowel syndrome) K58.9 Active 39513266 ALLERGIES No Information ENCOUNTERS Encounter Location Date Diagnosis [address] [place] [address] Nov, [address] [place] [address] Nov, [address] [place] [address] Nov, [address] [place] [address] Oct, Depression F32.9 [address] [place] [address] Oct, ADHD (attention deficit hype ractivity disorder) F90.9 [address] [place] [address] Oct, Encounter for immunization Z [address] [place] [address] Sep, ADHD (attention deficit hype ractivity disorder) F90.9 [address] [place] [address] Sep, [address] [place] [address] Sep, Sinusitis acute J01.90 [address] [place] [address] Sep, Major depressive disorder, r ecurrent, moderate F33.1 ; Traumatic brain injury, without loss of consciousness, sequela S06.9X0S ; Other detention (current) drug therapy Z79.899 and ADHD (attention deficit hyperactivity disorder) F90.[address] [place] [address] Aug, ADHD (attention deficit hype ractivity disorder) F90.[address] [place] [address] Aug, [address] [place] [address] Aug, [address] [place] [address] Aug, ADHD (attention deficit hype ractivity disorder) F90.9 and Viral illness B34.9 [address] [place] [address] Jul, ADHD (attention deficit hype ractivity disorder) F90.9 [facility] [address] [facility] [place] [address] Jul, [facility] [address] [id number] [place] [address] Jul, [address] [place] [address] Jun, ADHD (attention deficit hype ractivity disorder) F90.9 [facility] [address] [place] [address] Jun, ADHD (attention deficit hype ractivity disorder) F90.9 [facility] [address] [place] [address] Apr, Depression F32.9 ; Medicatio n monitoring encounter Z51.81 and ADHD (attention deficit hyperactivity disorder) F90.9 [facility] [address] [place] [address] Apr, [facility] [address] [place] [address] March, [facility] [address] [place] [address] March, ADHD (attention deficit hype ractivity disorder) F90.9 ; GERD (gastroesophageal reflux disease) K21.[address] [facility] [address] [place] [address] March, [facility] [address] [place] [address] Feb, Attention deficit hyperactiv ity disorder (ADHD) F90.9 and Acute non-recurrent maxillary sinusitis J01.00 [facility] [address] [place] [address] Feb, [facility] [address] [place] [address] Jan, [facility] [address] [place] [address] Jan, [facility] [address] [place] [address] Jan, [facility] [address] [place] [address] Jan, [facility] [address] [place] [address] Jan, [facility] [address] [facility] [place] [address] Jan, Numbness in both hands R20.0 [facility] [address] [facility] [address] [place] [address] Jan, [facility] [address] [id number] [place] [address] Oct, [facility] [id number] [place] [address] Oct, [facility] [address] [id number] [place] [address] Aug, [facility] [address] [id number] [place] [address] Jul, IMMUNIZATIONS No Known Immunizations SOCIAL HISTORY Never Assessed REASON FOR VISIT med refill PLAN OF CARE VITAL SIGNS MEDICATIONS Medication [...]
--- OUTSIDE RECORDS SUMMARY | 2020-06-22 19:20 | XMS REPORT | Continuity of Care Document ---
Author Organization Unknown Address Unknown Phone Unavailable Allergies Active Description Code Type Severity Reaction Onset Reported/Identified Relationship to Patient Clinical Status Yes cephalexin [id number] Drug Allerg y Unknown N/A 12/06/2019 Medications There is no data. Problems Date Dx Coded Attending Type Code Diagnosis Diagnosed By 12/06/2019 ROVENSTINE DO, JENA L Ot E11.40 TYPE 2 DIABETES MELLITUS WITH DIABETIC N 12/06/2019 ROVENSTINE DO, JENA L Ot R06.02 SHORTNESS OF BREATH 12/06/2019 ROVENSTINE DO, JENA L Ot R06.09 OTHER FORMS OF DYSPNEA 12/06/2019 ROVENSTINE DO, JENA L Ot Z88.1 ALLERGY STATUS TO OTHER ANTIBIOTIC AGENT 12/10/2019 ROVENSTINE DO, JENA L Ot E11.40 TYPE 2 DIABETES MELLITUS WITH DIABETIC N 12/10/2019 ROVENSTINE DO, JENA L Ot R06.02 SHORTNESS OF BREATH 12/10/2019 ROVENSTINE DO, JENA L Ot R06.09 OTHER FORMS OF DYSPNEA 12/10/2019 ROVENSTINE DO, JENA L Ot Z88.1 ALLERGY STATUS TO OTHER ANTIBIOTIC AGENT Procedures There is no data. Results Test Result Range PDM - 09 PANEL (PROFILE 1) - 05/15/19 09 :27 Prescribed Drug 1 Concerta(TM) NRG Creatinine 186.2 mg/dL > or = 20.0 pH 5.87 4.5 - 9.0 Oxidant NEGATIVE mcg/mL <200 Amphetamines POSITIVE ng/mL <500 Benzodiazepines NEGATIVE ng/mL <100 medMATCH Benzodiazepines CONSISTENT NRG Marijuana Metabolite NEGATIVE ng/mL <20 medMATCH Marijuana Metab CONSISTENT NRG Cocaine Metabolite NEGATIVE ng/mL <150 medMATCH Cocaine Metab CONSISTENT NRG Opiates NEGATIVE ng/mL <100 medMATCH Opiates CONSISTENT NRG Oxycodone NEGATIVE ng/mL <100 medMATCH Oxycodone CONSISTENT NRG COMMENT NRG Amphetamine 2906 ng/mL <250 medMATCH Amphetamine INCONSISTENT NRG Methamphetamine NEGATIVE ng/mL <250 medMATCH Methamphetamine CONSISTENT NRG Barbiturates NEGATIVE ng/mL <300 medMATCH Barbiturates CONSISTENT NRG Methadone Metabolite NEGATIVE ng/mL <100 medMATCH Methadone Metab CONSISTENT NRG Phencyclidine NEGATIVE ng/mL <25 medMATCH Phencyclidine CONSISTENT NRG SPECIMEN INTEGRITY COMPROMISED - 9 17:03 SPECIMEN INTEGRITY COMPROMISED NRG Capillary blood glucose measurement by g lucometer (mass/volume) - 12/06/19 13:12 Capillary blood glucose measurement by glucometer (mas s/volume) 140 mg/dL 70-110 Complete blood count (CBC) with automate d white blood cell (WBC) differential - 12/06/19 13:30 Blood leukocytes automated count (number/volume) 5.9 10*3/uL 4.3-11.0 Blood erythrocytes automated count (number/volume) 4.86 10*6/uL 4.35-5.85 Venous blood hemoglobin measurement (mass/volume) 14.7 g/dL 13.3-17.7 Blood hematocrit (volume fraction) 43 % 40-54 Automated erythrocyte mean corpuscular volume 88 [ foz_us] 80-99 Automated erythrocyte mean corpuscular h emoglobin (mass per erythrocyte) 30 pg 25-34 Automated erythrocyte mean corpuscular h emoglobin concentration measurement (mass/volume) 34 g/dL 32-36 Automated erythrocyte distribution width ratio 12. 6 % 10.0- 14.5 Automated blood platelet count (count/volume) 284 10*3/uL 130-400 Automated blood platelet mean volume measurement 10.3 [foz_us] 7.4-10.4 Automated blood neutrophils/100 leukocytes 53 % 42-75 Automated blood lymphocytes/100 leukocytes 36 % 12-44 Blood monocytes/100 leukocytes 8 % 0-12 Automated blood eosinophils/100 leukocytes 2 % 0-10 Automated blood basophils/100 leukocytes 1 % 0-10 Blood neutrophils automated count (number/volume) 3.1 10*3 1.8-7.8 Blood lymphocytes automated count (number/volume) 2.2 10*3 1.0-4.0 Blood monocytes automated count (number/volume) 0. 5 10*3 0.0-1.0 Automated eosinophil count 0.1 10*3/uL 0 .0-0.3 Automated blood basophil count (count/volume) 0.0 10*3/uL 0.0-0.1 Comprehensive metabolic panel - 12/06/19 13:30 Serum or plasma sodium measurement (moles/volume) 139 mmol/L 135-145 Serum or plasma potassium measurement (moles/volume) 4.0 mmol/L 3.6-5.0 Serum or plasma chloride measurement (moles/volume) 103 mmol/L 98-107 Carbon dioxide 21 mmol/L 21-32 Serum or plasma anion gap determination (moles/volume) 15 mmol/L 5-14 Serum or plasma urea nitrogen measurement (mass/volume ) 17 mg/dL 7-18 Serum or plasma creatinine measurement (mass/volume) 0.88 mg/dL 0.60-1.30 Serum or plasma urea nitrogen/creatinine mass ratio 19 NRG Serum or plasma creatinine measurement w ith calculation of estimated glomerular filtration rate > NRG Serum or plasma glucose measurement (mass/volume) 138 mg/dL 70-105 Serum or plasma calcium measurement (mass/volume) 9.2 mg/dL 8.5-10.1 Serum or plasma total bilirubin measurement (mass/volu me) 0.2 mg/dL 0.1-1.0 Serum or plasma alkaline phosphatase trinh surement (enzymatic activity/volume) 70 U/L 40-136 Serum or plasma aspartate aminotransfera se measurement (enzymatic activity/volume) 29 U/L 5-34 Serum or plasma alanine aminotransferase measurement (enzymatic activity/volume) 33 U/L 0-55 Serum or plasma protein measurement (mass/volume) 7.5 g/dL 6.4-8.2 Serum or plasma albumin measurement (mass/volume) 4.4 g/dL 3.2-4.5 CALCIUM CORRECTED 8.9 mg/dL 8.5-10.1 TROPONIN I FS - 12/06/19 13:30 TROPONIN I FS < 0.30 <0.30 PDM - ATS (PROFILE 8 WITH CONFIRMATION) - 05/13/20 17:29 Prescribed Drug 1 Concerta(TM) NRG Creatinine 189.5 mg/dL > or = 20.0 pH 5.8 4.5-9.0 Oxidant NEGATIVE mcg/mL <200 Amphetamines NEGATIVE ng/mL <500 medMATCH Amphetamines CONSISTENT NRG Benzodiazepines NEGATIVE ng/mL <100 medMATCH Benzodiazepines CONSISTENT NRG Marijuana Metabolite NEGATIVE ng/mL <20 medMATCH Marijuana Metab CONSISTENT NRG Cocaine Metabolite NEGATIVE ng/mL <150 medMATCH Cocaine Metab CONSISTENT NRG Opiates NEGATIVE ng/mL <100 medMATCH Opiates CONSISTENT NRG Oxycodone NEGATIVE ng/mL <100 medMATCH Oxycodone CONSISTENT NRG COMMENT NRG Buprenorphine NEGATIVE ng/mL <5 MDMA NEGATIVE ng/mL <500 medMATCH MDMA CONSISTENT NRG Alcohol Metabolites NEGATIVE ng/mL <500 medMATCH Alcohol Metab CONSISTENT NRG 6 Acetylmorphine NEGATIVE ng/mL <10 medMATCH 6 Acetylmorphine CONSISTENT NR G medMATCH Buprenorphine CONSISTENT NRG LIPID PANEL - 05/15/20 07:31 CHOLESTEROL, TOTAL 238 mg/dL <200 HDL CHOLESTEROL 36 mg/dL > OR = 40 TRIGLYCERIDES 317 mg/dL <150 LDL-CHOLESTEROL 153 mg/dL (calc) NRG CHOL/HDLC RATIO 6.6 (calc) <5.0 NON HDL CHOLESTEROL 202 mg/dL (calc) <13 0 CBC - 06/03/20 10:42 WHITE BLOOD CELL COUNT 4.9 Thousand/uL 3 .8-10.8 RED BLOOD CELL COUNT 4.35 Million/uL 4.2 0-5.80 HEMOGLOBIN 13.2 g/dL 13.2-17.1 HEMATOCRIT 39.0 % 38.5-50.0 MCV 89.7 fL 80.0-100.0 MCH 30.3 pg 27.0-33.0 MCHC 33.8 g/dL 32.0-36.0 RDW 13.0 % 11.0-15.0 PLATELET COUNT 208 Thousand/uL 140-400 MPV 10.5 fL 7.5-12.5 ABSOLUTE NEUTROPHILS 2308 cells/uL 1500- 7800 ABSOLUTE LYMPHOCYTES 1735 cells/uL 850-3 900 ABSOLUTE MONOCYTES 647 cells/uL 200-950 ABSOLUTE EOSINOPHILS 162 cells/uL 15-500 ABSOLUTE BASOPHILS 49 cells/uL 0-200 NEUTROPHILS 47.1 % NRG LYMPHOCYTES 35.4 % NRG MONOCYTES 13.2 % NRG EOSINOPHILS 3.3 % NRG BASOPHILS 1.0 % NRG Complete blood count (CBC) with automate d white blood cell (WBC) differential - 06/22/20 14:51 Blood leukocytes automated count (number/volume) 8.2 10*3/uL 4.3-11.0 Blood erythrocytes automated count (number/volume) 4.74 10*6/uL 4.35-5.85 Venous blood hemoglobin measurement (mass/volume) 14.5 g/dL 13.3-17.7 Blood hematocrit (volume fraction) 42 % 40-54 Automated erythrocyte mean corpuscular volume 88 [ foz_us] 80-99 Automated erythrocyte mean corpuscular h emoglobin (mass per erythrocyte) 31 pg 25-34 Automated erythrocyte mean corpuscular h emoglobin concentration measurement (mass/volume) 35 g/dL 32-36 Automated erythrocyte distribution width ratio 12. 5 % 10.0- 14.5 Automated blood platelet count (count/volume) 314 10*3/uL 130-400 Automated blood platelet mean volume measurement 10.0 [foz_us] 7.4-10.4 Automated blood neutrophils/100 leukocytes 53 % 42-75 Automated blood lymphocytes/100 leukocytes 35 % 12-44 Blood monocytes/100 leukocytes 9 % 0-12 Automated blood eosinophils/100 leukocytes 2 % 0-10 Automated blood basophils/100 leukocytes 1 % 0-10 Blood neutrophils automated count (number/volume) 4.3 10*3 1.8-7.8 Blood lymphocytes automated count (number/volume) 2.8 10*3 1.0-4.0 Blood monocytes automated count (number/volume) 0. 8 10*3 0.0-1.0 Automated eosinophil count 0.2 10*3/uL 0 .0-0.3 Automated blood basophil count (count/volume) 0.1 10*3/uL 0.0-0.1 Comprehensive metabolic panel - 06/22/20 14:51 Serum or plasma sodium measurement (moles/volume) 138 mmol/L 135-145 Serum or plasma potassium measurement (moles/volume) 4.1 mmol/L 3.6-5.0 Serum or plasma chloride measurement (moles/volume) 103 mmol/L 98-107 Carbon dioxide 23 mmol/L 21-32 Serum or plasma anion gap determination (moles/volume) 12 mmol/L 5-14 Serum or plasma urea nitrogen measurement (mass/volume ) 16 mg/dL 7-18 Serum or plasma creatinine measurement (mass/volume) 0.85 mg/dL 0.60-1.30 Serum or plasma urea nitrogen/creatinine mass ratio 19 NRG Serum or plasma creatinine measurement w ith calculation of estimated glomerular filtration rate > NRG Serum or plasma glucose measurement (mass/volume) 125 mg/dL 70-105 Serum or plasma calcium measurement (mass/volume) 9.7 mg/dL 8.5-10.1 Serum or plasma total bilirubin measurement (mass/volu me) 0.3 mg/dL 0.1-1.0 Serum or plasma alkaline phosphatase trinh surement (enzymatic activity/volume) 76 U/L 40-136 Serum or plasma aspartate aminotransfera se measurement (enzymatic activity/volume) 34 U/L 5-34 Serum or plasma alanine aminotransferase measurement (enzymatic activity/volume) 60 U/L 0-55 Serum or plasma protein measurement (mass/volume) 7.4 g/dL 6.4-8.2 Serum or plasma albumin measurement (mass/volume) 4.5 g/dL 3.2-4.5 CALCIUM CORRECTED 9.3 mg/dL 8.5-10.1 Magnesium - 06/22/20 14:51 Magnesium 2.1 mg/dL 1.6-2.4 Lipase - 06/22/20 14:51 Lipase 53 U/L 8-78 TROPONIN I FS - 06/22/20 14:51 TROPONIN I FS < 0.30 <0.30 PROBNP FS - 06/22/20 14:51 PROBNP FS 7.6 pg/mL <75.0 Encounters ACCT No. Visit Date/Time Discharge Status Pt. Type Provider Facility Loc./Unit Complaint [id number] 04/14/2019 00:00:00 04/14/2019 23:59: 00 DIS Outpatient [facility] [id number] 04/09/2019 14:23:00 04/09/2019 23:59: 00 DIS Outpatient AUSTIN BARKSDALE [id number] 06/22/2020 14:45:00 16:46:00 DIS Emergency CHRISTINE SANCHEZ DO Via [facility] ER FS CHEST/JAW PAIN [id number] 12/06/2019 13:02:00 14:29:00 DIS Emergency JENA DAVIS DO [facility] ER FS SOB [id number] 06/03/2020 09:20:00 06/03/2020 23:59: 59 CLS Outpatient COREY ROSAS [facility] [id number] 06/03/2020 09:20:00 Document Registration [id number] 05/15/2020 07:15:00 Document Registration [id number] 05/13/2020 16:30:00 Document Registration [id number] 10/02/2019 16:00:00 Document Registration [id number] 05/15/2019 08:45:00 Document Registration
== END 2020-06-22 16:46 | disposition home or self-care (01) ==
LOC: EDUNIT# 14:44 → ER FS 14:45
DX: R68.84 Jaw pain (principal); R07.9 Chest pain, unspecified
CPT/HCPCS: 36415; 71045; 80053; 83690; 83735; 83880; 84484; 85025; 93005; 93041

== ENCOUNTER → 2020-08-21 | Outpatient (CLI) | payer BC | LOC: CARD 09:30 | PROVIDERS: ATTEND Internal Medicine Cardiovascular Disease | DX: I10 Essential (primary) hypertension (principal); E78.2 Mixed hyperlipidemia; R07.9 Chest pain, unspecified | CPT/HCPCS: 93306 ==

== ENCOUNTER → 2020-08-26 | Outpatient (CLI) | payer BC ==
[~2020-08-26] VITALS: Ht 173 cm; Wt 97.0 kg
[~2020-08-26] MED LIST changes: +CATHETER FLUSH 10 ML SYR IV PRN; +REGADENOSON 0.4 MG/5 ML SYR (LEXISCAN) IV ONE
[2020-08-26 09:03] VITALS: BP 124/83
--- NOTE | 2020-08-26 12:59 | Cardiology Stress Test Report ---
Stress Test Report Date of Procedure/Referring: Date of Procedure: Aug 26, 2020 PCP Sb العراقي MD Admitting Physician Aleksey Sabillon MD Indications: Chest pain Baseline Heart Rate: 49 Baseline Blood Pressure: Blood Pressure Systolic: 124 Blood Pressure Diastolic: 83 Baseline Vitals Vital Signs Date Time Temp Pulse Resp B/P (MAP) Pulse Ox O2 Delivery O2 Flow Rate FiO2 08/26/20 09:03 47 124/83 (97) 99 Baseline EKG: Baseline EKG: normal sinus rhythm Summary After explaining the procedure to the patient, he signed a consent and then brought to the stress nuclear laboratory. Patient received 0.4 mg Lexiscan for stress test, ECG, heart rate and blood pressure were monitored continuously. Resting and stress dose of radio tracer were injected, imaging was acquired and reviewed in short axis, horizontal long axis and vertical long axis views. TID: 1.08 SSS: 0 SDS: 0 EF: 57 1. Patient tolerated Lexiscan well 2. No significant ischemia or infarction on SPECT images 3. Normal left ventricular size, EF 57 percent SB العراقي MD Aug 26, 2020 12:59
== END ==
LOC: CARD 07:30
PROVIDERS: ATTEND Internal Medicine Cardiovascular Disease
DX: I10 Essential (primary) hypertension (principal); E78.2 Mixed hyperlipidemia; R07.9 Chest pain, unspecified
CPT/HCPCS: 78452; 93017; A9502

== ENCOUNTER 2023-07-05 11:01 | Emergency (ER) | payer OTHER ==
[~2023-07-05] VITALS: Ht 180 cm; Wt 97.0 kg
[~2023-07-05 11:01] MED LIST changes: +ALBU8.5H6 INH; -CATHETER FLUSH 10 ML SYR IV PRN; -REGADENOSON 0.4 MG/5 ML SYR (LEXISCAN) IV ONE; -RT-ALBUINH INH
[2023-07-05 11:04] VITALS: BP 154/98
--- NOTE | 2023-07-05 11:28 | ED General ---
General Stated Complaint: LT SIDE PAIN | ARMS AND LEGS Source of Information: Patient Exam Limitations: No Limitations History of Present Illness Date Seen by Provider: Jul 05, 2023 Time Seen by Provider: 11:07 Initial Comments 47-year-old male presents the ER with multiple complaints. He states that yesterday around 7 PM he started having left shoulder pain, states the pain then started in his left elbow, and his left second finger. He denies chest pain, but states mild shortness of air. He states today the pain has moved into his left knee and left ankle. He states that he also has numbness in these l ocations. He also complains of a frontal headache, neck pain, and mid abdominal pain. He reports that all night he has felt nauseous, denies vomiting. Denies diarrhea. Reports couple days ago he had diarrhea. He also is complaining of constant thirst. Patient is concerned that symptoms may be related to his heart or to a stroke. Past medical history includes type 2 diabetes, hyperlipidemia, gout. Allergies and Home Medications Allergies Coded Allergies: cephalexin (Verified Allergy, Unknown, 12/06/19) Patient Home Medication List Home Medication List Reviewed: Yes Albuterol Sulfate (Ventolin Hfa) 1 Puff Puff, 2 PUFF INH Q4H PRN for SHORTNESS OF BREATH Prescribed by: JENA DAVIS on 12/06/19 3507 Review of Systems Review of Systems Constitutional: see HPI Past Vfzagdv-Lcrxdo-Dmucvu Hx Seasonal Allergies Seasonal Allergies: No Past Medical History Surgeries: Yes Orthopedic Respiratory: No Cardiac: No Neurological: Yes Neuropathy Genitourinary: No Gastrointestinal: Yes Gastroesophageal Reflux Musculoskeletal: Yes Gout Endocrine: Yes Diabetes, Non-Insulin dep HEENT: No Cancer: No Psychosocial: Yes Anxiety, Depression Integumentary: No Blood Disorders: No Physical Exam Vital Signs Vital Signs - First Documented 07/05/23 11:04 Temp 36.7 Pulse 82 Resp 20 B/P (MAP) 154/98 Pulse Ox 96 O2 Delivery Room Air Capillary Refill : Height, Weight, BMI Height: '" Weight: lbs. oz. 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 Skin: Normal Color, Warm/Dry Progress/Results/Core Measures Suspected Sepsis SIRS Temperature: Pulse: Respiratory Rate: Laboratory Tests 07/05/23 11:22: White Blood Count 5.1 Blood Pressure / Mean: Laboratory Tests 07/05/23 11:22: Creatinine 0.96, INR Comment 0.9, Platelet Count 226, Total Bilirubin 0.3 Results/Orders Lab Results Laboratory Tests Test 07/05/23 11:15 07/05/23 11:22 07/05/23 11:42 07/05/23 12:37 Range/Units Glucometer 165 H 70-110 MG/DL White Blood Count 5.1 4.3-11.0 10^3/uL Red Blood Count 4.76 4.30-5.52 10^6/uL Hemoglobin 14.6 13.3-17.7 g/dL Hematocrit 42 40-54 % Mean Corpuscular Volume 89 80-99 fL Mean Corpuscular Hemoglobin 31 25-34 pg Mean Corpuscular Hemoglobin Concent 34 32-36 g/dL Red Cell Distribution Width 13.0 10.0-14.5 % Platelet Count 226 130-400 10^3/uL Mean Platelet Volume 9.8 9.0-12.2 fL Immature Granulocyte % (Auto) 0 % Neutrophils (%) (Auto) 46 42-75 % Lymphocytes (%) (Auto) 40 12-44 % Monocytes (%) (Auto) 11 0-12 % Eosinophils (%) (Auto) 3 0-10 % Basophils (%) (Auto) 1 0-10 % Neutrophils # (Auto) 2.3 1.8-7.8 10^3/uL Lymphocytes # (Auto) 2.0 1.0-4.0 10^3/uL Monocytes # (Auto) 0.6 0.0-1.0 10^3/uL Eosinophils # (Auto) 0.1 0.0-0.3 10^3/uL Basophils # (Auto) 0.0 0.0-0.1 10^3/uL Immature Granulocyte # (Auto) 0.0 0.0-0.1 10^3/uL Prothrombin Time 12.5 12.2-14.7 SEC INR Comment 0.9 0.8-1.4 Activated Partial Thromboplast Time 31 24-35 SEC Sodium Level 137 135-145 MMOL/L Potassium Level 3.4 L 3.6-5.0 MMOL/L Chloride Level 103 98-107 MMOL/L Carbon Dioxide Level 22 21-32 MMOL/L Anion Gap 12 5-14 MMOL/L Blood Urea Nitrogen 17 7-18 MG/DL Creatinine 0.96 0.60-1.30 MG/DL Estimat Glomerular Filtration Rate 98 BUN/Creatinine Ratio 18 Glucose Level 146 H 70-105 MG/DL Calcium Level 8.7 8.5-10.1 MG/DL Corrected Calcium 8.7 8.5-10.1 MG/DL Magnesium Level 2.0 1.6-2.4 MG/DL Total Bilirubin 0.3 0.1-1.0 MG/DL Aspartate Amino Transf (AST/SGOT) 27 5-34 U/L Alanine Aminotransferase (ALT/SGPT) 30 0-55 U/L Alkaline Phosphatase 73 40-136 U/L Troponin I < 0.028 <0.028 NG/ML Total Protein 7.2 6.4-8.2 GM/DL Albumin 4.0 3.2-4.5 GM/DL Lipase 46 8-78 U/L Influenza Type A (RT-PCR) Not Detected Not Detecte Influenza Type B (RT-PCR) Not Detected Not Detecte SARS-CoV-2 RNA (RT-PCR) Not Detected Not Detecte Urine Color YELLOW Urine Clarity CLEAR Urine pH 5.5 5-9 Urine Specific [place] 1.020 1.016-1.022 Urine Protein NEGATIVE NEGATIVE Urine Glucose (UA) 3+ H NEGATIVE Urine Ketones NEGATIVE NEGATIVE Urine Nitrite NEGATIVE NEGATIVE Urine Bilirubin NEGATIVE NEGATIVE Urine Urobilinogen 0.2 < = 1.0 MG/DL Urine Leukocyte Esterase NEGATIVE NEGATIVE Urine RBC (Auto) NEGATIVE NEGATIVE Urine RBC NONE /HPF Urine WBC NONE /HPF Urine Squamous Epithelial Cells NONE /HPF Urine Crystals NONE /LPF Urine Bacteria NEGATIVE /HPF Urine Casts NONE /LPF Urine Mucus NEGATIVE /LPF Urine Culture Indicated NO Test 07/05/23 15:15 Range/Units Troponin I < 0.028 <0.028 NG/ML My Orders Orders - NATANAEL [employer] Cbc With Automated Diff (07/05/23 11:18) Protime With Inr (07/05/23 11:18) Partial Thromboplastin Time (07/05/23 11:18) Comprehensive Metabolic Panel (07/05/23 11:18) Troponin I [place] (07/05/23 11:18) Chest 1 View, Ap/Pa Only (07/05/23 11:18) Ekg Tracing (07/05/23 11:18) Nothing By Mouth (07/05/23 Lunch) Accucheck Stat ONCE (07/05/23 11:18) Ed Iv/Invasive Line Start (07/05/23 11:18) Vital Signs Stroke Patient Q15M (07/05/23 11:18) Monitor-Rhythm Ecg Trace Only (07/05/23 11:18) Dysphagia Screening Tool Q10MX1 (07/05/23 11:18) Magnesium (07/05/23 11:18) Lipase (07/05/23 11:18) Ns Iv 1000 Ml (Sodium Chloride 0.9%) (07/05/23 11:30) Covid 19 Inhouse Test (07/05/23 11:34) Influenza A And B By Pcr (07/05/23 11:34) Nih-Stroke Scale 09,21 (07/05/23 11:36) Ct Head/Cervical Spine Wo (07/05/23 11:18) Ua Culture If Indicated (07/05/23 12:05) Ketorolac Injection (Ketorolac Injection (07/05/23 12:30) Ekg Tracing (07/05/23 12:35) Troponin I Paul (07/05/23 15:00) Medications Given in ED Vital Signs/I&O 07/05/23 07/05/23 07/05/23 11:04 11:04 16:17 Temp 36.7 36.7 Pulse 82 82 71 Resp 20 20 17 B/P (MAP) 154/98 154/98 (116) 139/92 Pulse Ox 96 96 95 O2 Delivery Room Air Room Air Capillary Refill : Progress Note : Progress Note Patient seen and evaluated, resting comfortably in bed, no acute distress. Based on exam and symptoms, stroke/cardiac work-up initiated including CBC, CMP, troponin, coags, magnesium, chest x-ray, EKG, CT head and neck, lipase. IV fluids ordered. NIH 0. 1230 patient reports he is now having a dull pain in his left chest, along the left side of the sternum. He states that it just started. Will repeat his EKG. Initial troponin was normal. Will repeat a 3-hour troponin. Other labs reviewed. CBC grossly normal. CMP grossly normal, potassium slightly low 3.4. Glucose 146. Coags normal. Urinalysis negative for infection. Positive for 3+ glucose. COVID and flu negative. Chest x-ray shows no cardiopulmonary process. CT head and neck shows no acute cranial abnormality and no acute abnormality of the cervical spine. It does show degenerative disc changes. Toradol ordered for headache. Patient also reporting tingling in his left hand, states that it is intermittent. States that it started while he was here. Patient does have his blood pressure cuff on the left arm, states that he does not think that is related to blood pressure cuff. Denies tingling in the rest of his arm or leg. No weakness of the arm. Tingling in the left hand could be related to the degenerative disc disease the neck. 1600 repeat troponin negative. Results discussed with patient. I do not believe that patient has had a stroke, NM, or acute coronary syndrome. Pain in joints does not appear to be gout. Patient has remained stable, vitals, imaging and labs show no concerning findings. I am comfortable with discharge at this time. Discharge instructions and return precautions provided. ECG Initial ECG Impression Date: Jul 05, 2023 Initial ECG Impression Time: 11:40 Initial ECG Rate: 70 Initial ECG Rhythm: Normal Sinus Initial ECG Intervals: Normal Initial ECG Impression: Nonspecific Changes Initial ECG Comparisson: Unchanged EKG : EKG Time: 12:39 Rate: 63 Rhythm: Normal Sinus Intervals: Normal ECG Comparisson: Unchanged ECG Impression: Nonspecific Changes Diagnostic Imaging Diagonstic Imaging: Xray Plain Films/CT/US/NM/MRI: chest Comments [facility], [place] NAME: RYANMICHAEL JR MED REC#: [id number] PT STATUS: REG ER : 1975 PHYSICIAN: NATANAEL FISH APRN ADMIT DATE: 07/05/23/ER Draft Date of Exam:07/05/23 CHEST 1 VIEW, AP/PA ONLY INDICATION: chest pain COMPARISON: 06/22/2020. FINDINGS: Single frontal view of the chest demonstrates normal heart size and pulmonary vascularity. The lungs are well aerated and clear. No large pleural effusion or pneumothorax is seen. The visualized osseous structures show no acute abnormalities. IMPRESSION: 1. No acute cardiopulmonary process. Dictated on workstation # [id number] Dict: 07/05/23 1251 Trans: 07/05/23 1253 [id number] Interpreted by: YOMI KYLE MD Electronically signed by: [facility] Imaging: CT Plain Films/CT/US/NM/MRI: c-spine, head Comments [facility], [place] NAME: MICHAEL DAVIS [facility] REC#: [id number] PT STATUS: REG ER : 1975 PHYSICIAN: NATANAEL FISH APRN ADMIT DATE: 07/05/23/ER Draft Date of Exam:07/05/23 CT HEAD/CERVICAL SPINE WO PROCEDURE: CT head and CT cervical spine without contrast. TECHNIQUE: Multiple contiguous axial images were obtained through the brain and cervical spine without the use of intravenous contrast. Sagittal and coronal reformations through the cervical spine were then performed. Auto Exposure Controls were utilized during the CT exam to meet ALARA standards for radiation dose reduction. DATE: July 05, 2023. COMPARISON: None. INDICATION: 47-year-old male, left-sided head and neck pain. FINDINGS: There is no identified skull fracture. The ventricles and cerebral spinal fluid spaces are of normal size and configuration for the patient's age. There is no mass effect or midline shift. There is no acute intracranial hemorrhage. There is no abnormal extra-axial fluid collection. The visualized portions of the paranasal sinuses, mastoid air cells and middle ears are well aerated. There is no facet joint subluxation or dislocation. There is no pronounced facet arthropathy. There is no asymmetric widening of the cervical disc spaces. There is no prominent prevertebral soft tissue swelling. There is moderate to severe disc height loss at C6-C7 with a posterior disc osteophyte complex. There are also posterior disc osteophyte complexes at C5-C6 and C7-T1. CT is limited for assessment of disc pathology as well as additional nonbony causes of pathology in the spinal canal. There is no identified acute fracture of the cervical spine. The visualized portions of the lung apices are clear. IMPRESSION: 1. No identified acute intracranial abnormality. 2. No identified acute abnormality of the cervical spine. 3. Disc degenerative changes of the cervical spine most notable at C7, C5-C6, and C7-T1. Dictated on workstation # [id number] Dict: 07/05/23 1209 Trans: 07/05/23 1215 [facility] [id number] Interpreted by: CECILIA GLEZ MD Electronically signed by: Departure Impression Primary Impression: Chest pain Additional Impressions: Headache Arm pain Leg pain Neck pain Disposition: 01 HOME, SELF-CARE Condition: Stable Departure-Patient Inst. Decision time for Depature: 16:04 Referrals: ESTEFANY NEVES MD (PCP/Family) Primary Care Physician Patient Instructions: Chest Pain That Is Not Caused by the Heart (DC) Add. Discharge Instructions: Follow-up with your primary care provider. Return for any new, concerning, or worsening symptoms. NATANAEL FISH [employer]MAN [employer] Jul 05, 2023 11:28
[2023-07-05] MEDS ORDERED: NS IV 1000 ML 1,000 ML IV SCH (11:30)
[2023-07-05 11:32] LABS: BASOPHILS % (AUTO) 1 % (0-10); EOSINOPHILS # (AUTO) 0.1 10^3/uL (0.0-0.3); EOSINOPHILS % (AUTO) 3 % (0-10); HEMATOCRIT 42 % (40-54); HEMOGLOBIN 14.6 g/dL (13.3-17.7); LYMPHOCYTES % (AUTO) 40 % (12-44); MEAN CORPUSCULAR HEMOGLOBIN 31 pg (25-34); MEAN CORPUSCULAR HGB CONC 34 g/dL (32-36); MEAN CORPUSCULAR VOLUME 89 fL (80-99); MEAN PLATELET VOLUME 9.8 fL (9.0-12.2); MONOCYTES # (AUTO) 0.6 10^3/uL (0.0-1.0); MONOCYTES % (AUTO) 11 % (0-12); NEUTROPHILS # (AUTO) 2.3 10^3/uL (1.8-7.8); NEUTROPHILS % (AUTO) 46 % (42-75); PLATELET COUNT 226 10^3/uL (130-400); WHITE BLOOD COUNT 5.1 10^3/uL (4.3-11.0)
[2023-07-05 11:41] LABS: CHLORIDE 103 MMOL/L (98-107); POTASSIUM 3.4 MMOL/L (3.6-5.0); SODIUM 137 MMOL/L (135-145)
[2023-07-05 11:42] LABS: CALCIUM 8.7 MG/DL (8.5-10.1)
[2023-07-05 11:43] LABS: GLUCOSE 146 MG/DL (70-105); TOTAL PROTEIN 7.2 GM/DL (6.4-8.2)
[2023-07-05 11:44] LABS: CARBON DIOXIDE 22 MMOL/L (21-32)
[2023-07-05 11:45] LABS: BILIRUBIN,TOTAL 0.3 MG/DL (0.1-1.0); INR 0.9 (0.8-1.4); PROTHROMBIN TIME PATIENT 12.5 SEC (12.2-14.7)
[2023-07-05 11:47] LABS: ALKALINE PHOSPHATASE 73 U/L (40-136); CREATININE SERUM 0.96 MG/DL (0.60-1.30); GFR ESTIMATED 98
[2023-07-05 11:48] LABS: BUN/CREATININE RATIO 18
[2023-07-05 11:50] LABS: ALANINE AMINOTRANSFERASE 30 U/L (0-55)
[2023-07-05 11:51] LABS: LIPASE 46 U/L (8-78)
--- NOTE | 2023-07-05 12:16 | Diagnostic Imaging Report ---
PROCEDURE: CT head and CT cervical spine without contrast. TECHNIQUE: Multiple contiguous axial images were obtained through the brain and cervical spine without the use of intravenous contrast. Sagittal and coronal reformations through the cervical spine were then performed. Auto Exposure Controls were utilized during the CT exam to meet ALARA standards for radiation dose reduction. DATE: July 05, 2023. COMPARISON: None. INDICATION: 47-year-old male, left-sided head and neck pain. FINDINGS: There is no identified skull fracture. The ventricles and cerebral spinal fluid spaces are of normal size and configuration for the patient's age. There is no mass effect or midline shift. There is no acute intracranial hemorrhage. There is no abnormal extra-axial fluid collection. The visualized portions of the paranasal sinuses, mastoid air cells and middle ears are well aerated. There is no facet joint subluxation or dislocation. There is no pronounced facet arthropathy. There is no asymmetric widening of the cervical disc spaces. There is no prominent prevertebral soft tissue swelling. There is moderate to severe disc height loss at C6-C7 with a posterior disc osteophyte complex. There are also posterior disc osteophyte complexes at C5-C6 and C7-T1. CT is limited for assessment of disc pathology as well as additional nonbony causes of pathology in the spinal canal. There is no identified acute fracture of the cervical spine. The visualized portions of the lung apices are clear. IMPRESSION: 1. No identified acute intracranial abnormality. 2. No identified acute abnormality of the cervical spine. 3. Disc degenerative changes of the cervical spine most notable at C7, C5-C6, and C7-T1. Dictated by: Dictated on workstation # [id number]
[2023-07-05] MEDS ORDERED: KETOROLAC INJ 30 MG/ML VIAL IVP ONE (12:30)
--- NOTE | 2023-07-05 12:54 | Diagnostic Imaging Report ---
INDICATION: chest pain COMPARISON: 06/22/2020. FINDINGS: Single frontal view of the chest demonstrates normal heart size and pulmonary vascularity. The lungs are well aerated and clear. No large pleural effusion or pneumothorax is seen. The visualized osseous structures show no acute abnormalities. IMPRESSION: 1. No acute cardiopulmonary process. Dictated by: Dictated on workstation # [id number]
[2023-07-05 13:11] LABS: CLARITY,URINE CLEAR; COLOR,URINE YELLOW; PH,URINE 5.5 (5-9)
[2023-07-05 13:12] LABS: BACTERIA,URINE NEGATIVE /HPF; BILIRUBIN,URINE NEGATIVE (NEGATIVE); GLUCOSE, URINE (UA) 3+ (NEGATIVE); KETONES,URINE NEGATIVE (NEGATIVE); LEUKOCYTE ESTERASE ,URINE NEGATIVE (NEGATIVE); NITRITE,URINE NEGATIVE (NEGATIVE); PROTEIN,URINE NEGATIVE (NEGATIVE)
[2023-07-05 16:17] VITALS: BP 139/92
== END 2023-07-05 16:18 | disposition home or self-care (01) ==
LOC: EDUNIT# 11:01 → ER 11:04
DX: M25.512 Pain in left shoulder (principal); M25.522 Pain in left elbow; M79.645 Pain in left finger(s); M54.2 Cervicalgia; R51.9 Headache, unspecified; R07.89 Other chest pain; M79.605 Pain in left leg; Z20.822 Contact with and (suspected) exposure to COVID-19; Z28.310 Unvaccinated for COVID-19
CPT/HCPCS: 36415; 70450; 71045; 72125; 80053; 81000; 82947; 83690; 83735; 84484; 85025; 85610; 85730; 87636; 93005; 93041